=== PATIENT | female | born 2000 | race Caucasian/White ===

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

== ENCOUNTER 2019-09-13 08:44 | Emergency (ER) | payer BC ==
[2019-09-13 08:51] VITALS: RESP 18
--- NOTE | 2019-09-13 09:12 | ED ---
General Adult HPI - General Chief complaint: Abdominal Pain Stated complaint: abd pain/early Time Seen by Provider: 09/13/19 08:52 Source: patient, RN notes reviewed, old records reviewed Mode of arrival: ambulatory Limitations: no limitations - History of Present Illness Initial comments: 19-year-old female patient who believes that she is essentially approximately 6 weeks presents to ED for chief complaint of vaginal cramping. Patient for that her last menstrual period was around 08/08. She states that she has taken 2 positive tests since then. Reports that last Monday she is having some cramping in her lower quadrant mostly on her left side. Has been taking vitamins. Is not yet established with [employer]. Denies any dysuria, vaginal bleeding. Systemic: Pt denies fatigue, fever/chills, rash. Pt denies weakness, night sweats, weight loss. Neuro: Pt denies headache, visual disturbances, syncope or pre-syncope. HEENT: Pt denies ocular discharge or irritation, otalgia, rhinorrhea, pharyngitis or notable lymphadenopathy. Cardiopulmonary: Pt denies chest pain, SOB, heart palpitations, dyspnea on exert ion. Abdominal/GI: Pt denies n/v/d. : Pt denies dysuria, burning w/ urination, frequency/urgency. Denies new onset urinary or bowel incontinence. MSK: Pt denies myalgia, loss of strength or function in extremities. Neuro: Pt denies new onset weakness, paresthesias. - Related Data Home Medications Medication Instructions Recorded Confirmed No Known Home Medications 07/26/15 07/26/15 Allergies Allergy/AdvReac Type Severity Reaction Status Date / Time omeprazole Allergy Rash/Hives Verified 09/13/19 08:48 Review of Systems ROS Statement: Those systems with pertinent positive or pertinent negative responses have been documented in the HPI. ROS Other: All systems not noted in ROS Statement are negative. Past Medical History Past Medical History: No Reported History History of Any Multi-Drug Resistant Organisms: None Reported Past Surgical History: No Surgical Hx Reported Past Psychological History: ADD/ADHD Smoking Status: Never smoker Past Alcohol Use History: None Reported Past Drug Use History: None Reported General Exam - General Exam Comments Initial Comments: Constitutional: NAD, AOX3, Pt has pleasant affect. HEENT: NC/AT, trachea midline, neck supple, no lymphadenopathy. Posterior pharynx non erythematous, without exudates. External ears appear normal, without discharge. Mucous membranes moist. Eyes PERRLA, EOM intact. There is no scleral icterus. No pallor noted. Cardiopulmonary: RRR, no murmurs, rubs or gallops, no JVD noted. Lungs CTAB in anterior and posterior bautista. No peripheral edema. Abdominal exam: Abdomen soft and non-distended. Abdomen mildly tender to palpation left lower quadrant region.. Bowel sounds active in LLQ. No he patosplenomegaly. No ecchymosis Neuro: CN II-XII grossly intact. No nuchal rigidity. No raccon eyes, no turner sign, no hemotympanum. No cervical spinal tenderness. MSK: No posterior calf tenderness bilaterally, homans sign negative bilaterally. Posterior tibialis and radial pulse +2 bilaterally. Sensation intact in upper and lower extremities. Full active ROM in upper and lower extremities, 5/5 stregnth. Limitations: no limitations Course Vital Signs 09/13/19 08:48 Temperature 98.9 F Pulse Rate 85 Respiratory 18 Rate Blood Pressure 112/70 O2 Sat by Pulse 99 Oximetry Medical Decision Making - Medical Decision Making 19-year-old female patient who believes that she is essentially approximately 6 weeks presents to ED for chief complaint of vaginal cramping. Patient for that her last menstrual period was around 08/08. She states that she has taken 2 positive tests since then. Reports that last Monday she is having some cramping in her lower quadrant mostly on her left side. Has been taking vitamins. Is not yet established with [employer]. Denies any dysuria, vaginal bleeding. Patient fell signs stable, afebrile. Physical exam displayed very mild left lower quadrant tenderness. No guarding no rigidity. Laboratory investigations revealed hCG Quant of 3566. UA is negative. Transvaginal ultrasound display a small intrauterine gestational yolk sac, gestation estimated 5 weeks and 1 day. pole is not yet visualized. 2.6 cm likely corpus luteum cyst noted on the right. Patient will be discharged with outpatient OB follow-up and will return to ER if condition worsens. Case discussed with Dr. Ho. - Lab Data Result diagrams: 09/13/19 09:10 09/13/19 09:10 Lab Results 04/24/20 04/24/20 04/24/20 Range/Units 09:10 09:10 09:10 WBC 8.1 (4.0-11.0) k/uL RBC 4.42 (3.80-5.40) m/uL Hgb 13.4 (11.4-16.0) gm/dL Hct 40.9 (34.0-46.0) % MCV 92.6 (80.0-100.0) fL MCH 30.3 (25.0-35.0) pg MCHC 32.7 (31.0-37.0) g/dL RDW 12.0 (11.5-15.5) % Plt Count 275 (150-450) k/uL Neutrophils % 72 % Lymphocytes % 22 % Monocytes % 3 % Eosinophils % 1 % Basophils % 1 % Neutrophils # 5.8 (1.3-7.7) k/uL Lymphocytes # 1.8 (1.0-4.8) k/uL Monocytes # 0.3 (0-1.0) k/uL Eosinophils # 0.1 (0-0.7) k/uL Basophils # 0.1 (0-0.2) k/uL Sodium 137 (137-145) mmol/L Potassium 3.9 (3.5-5.1) mmol/L Chloride 106 (98-107) mmol/L Carbon Dioxide 22 (22-30) mmol/L Anion Gap 9 mmol/L BUN 10 (7-17) mg/dL Creatinine 0.54 (0.52-1.04) mg/dL Est GFR (CKD-EPI)AfAm >90 (>60 ml/min/1.73 sqM) Est GFR (CKD-EPI)NonAf >90 (>60 ml/min/1.73 sqM) Glucose 76 (74-99) mg/dL Calcium 9.3 (8.4-10.2) mg/dL Total Bilirubin 0.9 (0.2-1.3) mg/dL AST 22 (14-36) U/L ALT 13 (4-34) U/L Alkaline Phosphatase 45 (38-126) U/L Total Protein 6.8 (6.3-8.2) g/dL Albumin 4.1 (3.5-5.0) g/dL HCG, Quant 3566.8 mIU/mL Urine Color Yellow Urine Appearance Clear (Clear) Urine pH 7.0 (5.0-8.0) Ur Specific [place] 1.017 (1.001-1.035) Urine Protein Negative (Negative) Urine Glucose (UA) Negative (Negative) Urine Ketones Negative (Negative) Urine Blood Negative (Negative) Urine Nitrite Negative (Negative) Urine Bilirubin Negative (Negative) Urine Urobilinogen <2.0 (<2.0) mg/dL Ur Leukocyte Esterase Negative (Negative) Disposition Clinical Impression: , Abdominal cramping Disposition: HOME SELF-CARE Condition: Stable Instructions (If sedation given, give patient instructions): (ED) Additional Instructions: Follow-up with primary care provider and [facility] [facility] [facility]. Call today after discharge. Return to ER if condition worsens. Continue taking vitamins as directed. Is patient prescribed a controlled substance at d/c from ED?: No Referrals: Desirae Wetzel MD [Primary Care Provider] - 1-2 days Chad Hernandez MD [STAFF PHYSICIAN] - 1-2 days
[2019-09-13 09:30] LABS: Basophils # (A) 0.1 k/uL (0-0.2); Basophils % (A) 1 %; Eosinophils # (A) 0.1 k/uL (0-0.7); Eosinophils % (A) 1 %; HCT 40.9 % (34.0-46.0); HGB 13.4 gm/dL (11.4-16.0); Lymphocytes # (A) 1.8 k/uL (1.0-4.8); Lymphocytes % (A) 22 %; MCH 30.3 pg (25.0-35.0); MCHC 32.7 g/dL (31.0-37.0); MCV 92.6 fL (80.0-100.0); Mean Platelet Volume 7.6; Monocytes # (A) 0.3 k/uL (0-1.0); Monocytes % (A) 3 %; Neutrophils # (A) 5.8 k/uL (1.3-7.7); Neutrophils % (A) 72 %; Platelet Count 275 k/uL (150-450); RBC 4.42 m/uL (3.80-5.40); WBC 8.1 k/uL (4.0-11.0)
[2019-09-13 09:31] LABS: Appearance,Urine Clear (Clear); Bilirubin,Urine Negative (Negative); Blood,Urine Negative (Negative); Color,Urine Yellow; Glucose,Urine (UA) Negative (Negative); Ketones,Urine Negative (Negative); Leukocyte Esterase,Urine Negative (Negative); Nitrite,Urine Negative (Negative); Protein,Urine Negative (Negative); Specific Gravity,Urine 1.017 (1.001-1.035); Urobilinogen,Urine <2.0 mg/dL (<2.0)
[2019-09-13 09:43] LABS: ALT 13 U/L (4-34); AST 22 U/L (14-36); African American GFR (CKD) >90 (>60 ml/min/1.73 sqM); Albumin 4.1 g/dL (3.5-5.0); Alkaline Phosphatase 45 U/L (38-126); Anion Gap 9 mmol/L; Blood Urea Nitrogen 10 mg/dL (7-17); Calcium 9.3 mg/dL (8.4-10.2); Carbon Dioxide 22 mmol/L (22-30); Chloride 106 mmol/L (98-107); Glucose 76 mg/dL (74-99); Non-African American GFR(CKD) >90 (>60 ml/min/1.73 sqM); Potassium 3.9 mmol/L (3.5-5.1); Sodium 137 mmol/L (137-145); Total Bilirubin 0.9 mg/dL (0.2-1.3); Total Protein 6.8 g/dL (6.3-8.2)
[2019-09-13 10:00] LABS: HCG,Quantitative Serum 3566.8 mIU/mL
--- NOTE | 2019-09-13 10:38 | US ---
EXAMINATION TYPE: Ultrasound OB <= 14 weeks transvaginal DATE OF EXAM: 09/13/2019 10:18 AM COMPARISON: NONE CLINICAL HISTORY: 19-year-old female cramping LMP 08/14. Left pelvic pain EXAM PERFORMED: Transvaginal (TV) and Transabdominal (TA) FINDINGS: EXAM MEASUREMENTS: GESTATIONAL AGE / DATING Physician Established: Not yet established Dates by LMP: (5 weeks/0 days) EDC: 05/15/20 Dates by First Scan: No previous this is first scan Dates by Current Scan for: (5 weeks/1 days) EDC: 05/14/20 MATERNAL ANATOMY Uterus: 8.7 x 6.1 x 7.7cm Right Ovary: 3.8 x 2.2 x 2.6cm Left Ovary: 2.8 x 1.4 x 1.8cm Post CDS / Adnexa: small amount of free fluid posterior CDS Presence of free fluid: yes Presence of corpus luteal cyst: yes, right ovary = 2.6 x 2.1 x 2.0cm GESTATION / SURVEY MSD: 0.6cm (5 weeks/1 days) Yolk Sac (normal less than 6mm): 0.2cm No evidence of pole at this time Date of LMP: 08/09/19 Beta HcG (if available): [id number] [employer] notes: Gestational sac with yolk sac identified within uterus, unable to visualize pole at this time, possible too early to detect. Probable corpus luteum right ovary. Small amount of free fluid posterior cul-de-sac IMPRESSION: 1. Small intrauterine gestational sac with yolk sac visualized. MSD places the gestation at 5 weeks 1 day, concordant with gestational age by LMP (5 weeks 0 days). Follow-up ultrasound recommended to en sure the appearance of a pole with cardiac activity to ensure a viable intrauterine . 2. Small amount of cul-de-sac free fluid, likely physiologic. A 2.6 cm corpus luteum on the right.
[2019-09-13 11:31] VITALS: BP 119/79; PULSE 89; TEMP 98.3
== END 2019-09-13 11:31 | disposition home or self-care (01) ==
LOC: EC 08:44
DX: O99.89 Other specified diseases and conditions complicating pregnancy, childbirth and the puerperium (principal); R10.32 Left lower quadrant pain; Z3A.01 Less than 8 weeks gestation of pregnancy; Z88.8 Allergy status to other drugs, medicaments and biological substances
CPT/HCPCS: 36415; 76801; 76817; 80053; 81003; 84702; 85025; 99284

== ENCOUNTER 2019-09-15 10:39 | Emergency (ER) | payer BC ==
[2019-09-15 10:45] VITALS: TEMP 98.1
[2019-09-15 11:49] VITALS: RESP 20
[2019-09-15 11:54] LABS: Basophils # (A) 0.1 k/uL (0-0.2); Basophils % (A) 1 %; Eosinophils # (A) 0.1 k/uL (0-0.7); Eosinophils % (A) 1 %; HCT 41.8 % (34.0-46.0); HGB 13.9 gm/dL (11.4-16.0); Lymphocytes # (A) 1.9 k/uL (1.0-4.8); Lymphocytes % (A) 21 %; MCH 30.5 pg (25.0-35.0); MCHC 33.2 g/dL (31.0-37.0); MCV 91.9 fL (80.0-100.0); Mean Platelet Volume 7.7; Monocytes # (A) 0.4 k/uL (0-1.0); Monocytes % (A) 4 %; Neutrophils # (A) 6.5 k/uL (1.3-7.7); Neutrophils % (A) 71 %; Platelet Count 292 k/uL (150-450); RBC 4.55 m/uL (3.80-5.40); RDW 12.1 % (11.5-15.5); WBC 9.1 k/uL (4.0-11.0)
[2019-09-15 11:59] LABS: Appearance,Urine Cloudy (Clear); Bacteria,Urine Rare /hpf; Bilirubin,Urine Negative (Negative); Blood,Urine Moderate (Negative); Color,Urine Yellow; Glucose,Urine (UA) Negative (Negative); Ketones,Urine Negative (Negative); Leukocyte Esterase,Urine Large (Negative); Mucus,Urine Many /hpf; Nitrite,Urine Negative (Negative); Protein,Urine Trace (Negative); RBC,Urine 7 /hpf (0-5); Specific Gravity,Urine 1.029 (1.001-1.035); Squamous Epithelial Cell,Urine 23 /hpf (0-4); Urobilinogen,Urine <2.0 mg/dL (<2.0); WBC,Urine 20 /hpf (0-5)
[2019-09-15 12:05] LABS: ALT 13 U/L (4-34); AST 29 U/L (14-36); African American GFR (CKD) >90 (>60 ml/min/1.73 sqM); Albumin 4.3 g/dL (3.5-5.0); Alkaline Phosphatase 42 U/L (38-126); Anion Gap 7 mmol/L; Blood Urea Nitrogen 9 mg/dL (7-17); Calcium 9.5 mg/dL (8.4-10.2); Carbon Dioxide 23 mmol/L (22-30); Chloride 106 mmol/L (98-107); Glucose 79 mg/dL (74-99); Non-African American GFR(CKD) >90 (>60 ml/min/1.73 sqM); Potassium 4.3 mmol/L (3.5-5.1); Sodium 136 mmol/L (137-145); Total Bilirubin 1.1 mg/dL (0.2-1.3)
[2019-09-15 12:21] LABS: HCG,Quantitative Serum 8883.5 mIU/mL
[2019-09-15] MEDS ORDERED: Rhogam IMMUNE GLOBULIN 1,500 UNIT/1 ML IM ONE ×2 (12:29→12:33)
[2019-09-15] MEDS ORDERED: CEPHALEXIN 500MG STARTER PACK 4 CAP BTL PO STA (12:38)
[2019-09-15] MEDS ORDERED: CEPHALEXIN 500 MG CAP PO STA (12:38)
--- NOTE | 2019-09-15 14:13 | ED ---
General Adult HPI - General Chief complaint: Vaginal Bleeding Stated complaint: vaginal bleeding Time Seen by Provider: 09/15/19 10:46 Source: patient, RN notes reviewed, old records reviewed Mode of arrival: ambulatory Limitations: no limitations - History of Present Illness Initial comments: 19-year-old female patient proximally 5 weeks gestation presents to ED for evaluation of vaginal bleeding. Patient was initially seen for cramping in the in the emergency department on 09/12. Patient reports that she is still having some mild suprapubic cramping however yesterday and today she began having some very mild bleeding. She denies any dysuria or any concern for STI. Denies any other complaints. Systemic: Pt denies fatigue, fever/chills, rash. Pt denies weakness, night sweats, weight loss. Neuro: Pt denies headache, visual disturbances, syncope or pre-syncope. HEENT: Pt denies ocular discharge or irritation, otalgia, rhinorrhea, pharyngitis or notable lymphadenopathy. Cardiopulmonary: Pt denies chest pain, SOB, heart palpitations, dyspnea on exertion. Abdominal/GI: Pt denies abdominal pain, n/v/d. : Pt denies dysuria, burning w/ urination, frequency/urgency. Denies new onset urinary or bowel incontinence. MSK: Pt denies myalgia, loss of strength or function in extremities. Neuro: Pt denies new onset weakness, paresthesias. - Related Data Previous Rx's Medication Instructions Recorded Cephalexin [Keflex] 500 mg PO Q12HR 5 Days #10 cap 09/15/19 Allergies Allergy/AdvReac Type Severity Reaction Status Date / Time omeprazole Allergy Rash/Hives Verified 09/15/19 10:42 Review of Systems ROS Statement: Those systems with pertinent positive or pertinent negative responses have been documented in the HPI. ROS Other: All systems not noted in ROS Statement are negative. Past Medical History Past Medical History: No Reported History History of Any Multi-Drug Resistant Organisms: None Reported Past Surgical History: No Surgical Hx Reported Past Psychological History: ADD/ADHD Smoking Status: Never smoker Past Alcohol Use History: None Reported Past Drug Use History: None Reported General Exam - General Exam Comments Initial Comments: Constitutional: NAD, AOX3, Pt has pleasant affect. HEENT: NC/AT, trachea midline, neck supple, no lymphadenopathy. Posterior pharynx non erythematous, without exudates. External ears appear normal, without discharge. Mucous membranes moist. Eyes PERRLA, EOM intact. There is no scleral icterus. No pallor noted. Cardiopulmonary: RRR, no murmurs, rubs or gallops, no JVD noted. Lungs CTAB in anterior and posterior bautista. No peripheral edema. Abdominal exam: Abdomen soft and non-distended. Abdomen non-tender to palpation in all 4 quadrants. Bowel sounds active in LLQ. No hepatosplenomegaly. No ecchymosis Neuro: CN II-XII grossly intact. No nuchal rigidity. No raccon eyes, no turner sign, no hemotympanum. No cervical spinal tenderness. MSK: No posterior calf tenderness bilaterally, homans sign negative bilaterally. Posterior tibialis and radial pulse +2 bilaterally. Sensation intact in upper and lower extremities. Full active ROM in upper and lower extremities, 5/5 stregnth. Pelvic: Pelvic exam performed. Cervical os is closed. No lesions, mucova pink. No purulent drainage noted. Chaperogned by OLINDA Abdalal Limitations: no limitations Course Vital Signs 09/15/19 09/15/19 09/15/19 10:42 10:45 11:45 Temperature 98.1 F Pulse Rate 102 H Respiratory 18 20 20 Rate Blood Pressure 98/57 O2 Sat by Pulse 99 Oximetry 09/15/19 12:45 Temperature Pulse Rate 78 Respiratory 20 Rate Blood Pressure 110/59 O2 Sat by Pulse 99 Oximetry Medical Decision Making - Medical Decision Making 19-year-old female patient proximally 5 weeks gestation presents to ED for evaluation of vaginal bleeding. Patient was initially seen for cramping in the in the emergency department on 09/12. Patient reports that she is still having some mild suprapubic cramping however yesterday and today she began having some very mild bleeding. She denies any dysuria or any concern for STI. Denies any other complaints. Patient vital signs are stable, afebrile. Physical exam displayed: Abdomen soft and non-distended. Abdomen non-tender to palpation in all 4 quadrants. Previous ultrasound displayed small effusion on gestation with yolk sac estimated 5 weeks 1 day. HCG Quant sivan from 3000 508,800. UA was contaminated with squamous epithelial cells are did display 20 white cells and bacteria. Patient was offered and did wish to have a pelvic exam performed, chaperogned by Rufina. This displayed closed cervix no blood was noted. Patient discharged in stable condition. Patient is in no pain at time of disc harge. He'll follow up with primary care provider as well as [facility]ELOPMENT [facility]. Patient will have repeat beta hCG performed in 48 hours to ensure appropriate increase. Keflex for asyptomatic bacturia. Will return to ED if condition worsens. Case discussed with Dr. Donaldson. - Lab Data Result diagrams: 09/15/19 11:50 09/15/19 11:50 Lab Results 09/15/19 09/15/19 09/15/19 Range/Units 11:30 11:50 11:50 WBC 9.1 (4.0-11.0) k/uL RBC 4.55 (3.80-5.40) m/uL Hgb 13.9 (11.4-16.0) gm/dL Hct 41.8 (34.0-46.0) % MCV 91.9 (80.0-100.0) fL MCH 30.5 (25.0-35.0) pg MCHC 33.2 (31.0-37.0) g/dL RDW 12.1 (11.5-15.5) % Plt Count 292 (150-450) k/uL Neutrophils % 71 % Lymphocytes % 21 % Monocytes % 4 % Eosinophils % 1 % Basophils % 1 % Neutrophils # 6.5 (1.3-7.7) k/uL Lymphocytes # 1.9 (1.0-4.8) k/uL Monocytes # 0.4 (0-1.0) k/uL Eosinophils # 0.1 (0-0.7) k/uL Basophils # 0.1 (0-0.2) k/uL Sodium (137-145) mmol/L Potassium (3.5-5.1) mmol/L Chloride (98-107) mmol/L Carbon Dioxide (22-30) mmol/L Anion Gap mmol/L BUN (7-17) mg/dL Creatinine (0.52-1.04) mg/dL Est GFR (CKD-EPI)AfAm (>60 ml/min/1.73 sqM) Est GFR (CKD-EPI)NonAf (>60 ml/min/1.73 sqM) Glucose (74-99) mg/dL Calcium (8.4-10.2) mg/dL Total Bilirubin (0.2-1.3) mg/dL AST (14-36) U/L ALT (4-34) U/L Alkaline Phosphatase (38-126) U/L Total Protein (6.3-8.2) g/dL Albumin (3.5-5.0) g/dL HCG, Quant mIU/mL Urine Color Urine Appearance (Clear) Urine pH (5.0-8.0) Ur Specific [place] (1.001-1.035) Urine Protein (Negative) Urine Glucose (UA) (Negative) Urine Ketones (Negative) Urine Blood (Negative) Urine Nitrite (Negative) Urine Bilirubin (Negative) Urine Urobilinogen (<2.0) mg/dL Ur Leukocyte Esterase (Negative) Urine RBC (0-5) /hpf Urine WBC (0-5) /hpf Ur Squamous Epith Cells (0-4) /hpf Urine Bacteria (None) /hpf Urine Mucus (None) /hpf Urine HCG, Qual Detected (Not Detectd) Blood Type O Negative Blood Type Recheck No Previous Record Bld Type Recheck Status Antibody Screen NEGATIVE 09/15/19 09/15/19 Range/Units 11:50 11:50 WBC (4.0-11.0) k/uL RBC (3.80-5.40) m/uL Hgb (11.4-16.0) gm/dL Hct (34.0-46.0) % MCV (80.0-100.0) fL MCH (25.0-35.0) pg MCHC (31.0-37.0) g/dL RDW (11.5-15.5) % Plt Count (150-450) k/uL Neutrophils % % Lymphocytes % % Monocytes % % Eosinophils % % Basophils % % Neutrophils # (1.3-7.7) k/uL Lymphocytes # (1.0-4.8) k/uL Monocytes # (0-1.0) k/uL Eosinophils # (0-0.7) k/uL Basophils # (0-0.2) k/uL Sodium 136 L (137-145) mmol/L Potassium 4.3 (3.5-5.1) mmol/L Chloride 106 (98-107) mmol/L Carbon Dioxide 23 (22-30) mmol/L Anion Gap 7 mmol/L BUN 9 (7-17) mg/dL Creatinine 0.53 (0.52-1.04) mg/dL Est GFR (CKD-EPI)AfAm >90 (>60 ml/min/1.73 sqM) Est GFR (CKD-EPI)NonAf >90 (>60 ml/min/1.73 sqM) Glucose 79 (74-99) mg/dL Calcium 9.5 (8.4-10.2) mg/dL Total Bilirubin 1.1 (0.2-1.3) mg/dL AST 29 (14-36) U/L ALT 13 (4-34) U/L Alkaline Phosphatase 42 (38-126) U/L Total Protein 7.0 (6.3-8.2) g/dL Albumin 4.3 (3.5-5.0) g/dL HCG, Quant 8883.5 mIU/mL Urine Color Yellow Urine Appearance Cloudy H (Clear) Urine pH 6.0 (5.0-8.0) Ur Specific [place] 1.029 (1.001-1.035) Urine Protein Trace H (Negative) Urine Glucose (UA) Negative (Negative) Urine Ketones Negative (Negative) Urine Blood Moderate H (Negative) Urine Nitrite Negative (Negative) Urine Bilirubin Negative (Negative) Urine Urobilinogen <2.0 (<2.0) mg/dL Ur Leukocyte Esterase Large H (Negative) Urine RBC 7 H (0-5) /hpf Urine WBC 20 H (0-5) /hpf Ur Squamous Epith Cells 23 H (0-4) /hpf Urine Bacteria Rare H (None) /hpf Urine Mucus Many H (None) /hpf Urine HCG, Qual (Not Detectd) Blood Type Blood Type Recheck Bld Type Recheck Status Antibody Screen Disposition Clinical Impression: Asymptomatic bacteriuria, Vaginal bleeding affecting early Disposition: HOME SELF-CARE Condition: Stable Instructions (If sedation given, give patient instructions): Threatened Mis carriage (ED) Additional Instructions: Call [facility]ELOPMENT TE[facility] after discharge for close outpatient follow-up. Follow-up with primary care provider tomorrow. Take Keflex as directed. Have repeat blood draw in 48 hours to ensure appropriate rise in hCG. Return to ER if condition worsens. Is patient prescribed a controlled substance at d/c from ED?: No Referrals: Desirae Wetzel MD [Primary Care Provider] - 1-2 days Siri Kohler MD [STAFF PHYSICIAN] - 1-2 days
[2019-09-15 14:18] VITALS: BP 117/61; PULSE 71
== END 2019-09-15 14:22 | disposition home or self-care (01) ==
LOC: EC 10:39
DX: O20.9 Hemorrhage in early pregnancy, unspecified (principal); O99.89 Other specified diseases and conditions complicating pregnancy, childbirth and the puerperium; R82.71 Bacteriuria; Z3A.01 Less than 8 weeks gestation of pregnancy; Z88.8 Allergy status to other drugs, medicaments and biological substances
CPT/HCPCS: 36415; 86900; 86901; 80053; 85025; 86850; 81001; 81025; 84702; 87808; 87491; 87591; 87070; 99284; 96372; J2791

== ENCOUNTER 2020-12-14 21:19 | Emergency (ER) | payer OTHER, BC ==
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
--- NOTE | 2020-12-14 22:33 | XR ---
EXAMINATION TYPE: XR pelvis AP view DATE OF EXAM: 12/14/2020 COMPARISON: NONE HISTORY: Pain TECHNIQUE: Single view FINDINGS: Pelvic ring appears intact. Proximal femurs and hip joints appear intact. Sacroiliac joints appear normal. IMPRESSION: Normal pelvis
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
[2020-12-14 23:24] VITALS: BP 119/81; PULSE 72; RESP 18; TEMP 97.6
== END 2020-12-14 23:20 | disposition home or self-care (01) ==
LOC: EC 21:19
DX: S13.9XXA Sprain of joints and ligaments of unspecified parts of neck, initial encounter (principal); Z88.8 Allergy status to other drugs, medicaments and biological substances; V43.52XA Car driver injured in collision with other type car in traffic accident, initial encounter; Y92.410 Unspecified street and highway as the place of occurrence of the external cause
CPT/HCPCS: 70450; 71045; 72125; 72170; 99284

== ENCOUNTER 2021-01-08 12:41 | Emergency (ER) | payer BC ==
[2021-01-08 12:48] VITALS: TEMP 99.1
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
--- NOTE | 2021-01-08 14:09 | XR ---
EXAMINATION TYPE: XR elbow complete LT DATE OF EXAM: 01/08/2021 COMPARISON: NONE HISTORY: Pain FINDINGS: Three views of the elbow demonstrate no pathologic joint effusion. The osseous structures are intact . There is no acute fracture or dislocation. IMPRESSION: 1. No acute fracture or dislocation. If symptoms persist follow-up study in 7 to 10 days could be ob tained.
--- NOTE | 2021-01-08 14:10 | XR ---
EXAMINATION TYPE: XR hand complete RT DATE OF EXAM: 01/08/2021 COMPARISON: NONE HISTORY: Pain TECHNIQUE: Three views are submitted. FINDINGS: The osseous structures are intact. The joint spaces are preserved and there is no acute fracture or dislocation. IMPRESSION: 1. No definite acute fracture or dislocation if symptoms persist, follow-up study in 7 to 10 days wo uld be suggested
--- NOTE | 2021-01-08 14:12 | XR ---
EXAMINATION TYPE: XR wrist complete RT DATE OF EXAM: 01/08/2021 COMPARISON: NONE HISTORY: Pain TECHNIQUE: Four views submitted. FINDINGS: The osseous structures are intact. The joint spaces are preserved and there is no acute fracture or dislocation. IMPRESSION: 1. No definite acute fracture or dislocation if symptoms persist, follow-up study in 7 to 10 days wo uld be suggested
--- NOTE | 2021-01-08 14:12 | XR ---
EXAMINATION TYPE: XR shoulder complete RT DATE OF EXAM: 01/08/2021 COMPARISON: NONE HISTORY: Pain TECHNIQUE: Three views are submitted. FINDINGS: The osseous structures are intact. There is no acute fracture or dislocation. The AC joint is maint ained. Slight elevation of the clavicle. IMPRESSION: 1. No acute fracture. AC joint distance is maintained. There is slight elevation of clavicle which c ould be congenital. If concern for AC joint separation correlate with MRI.
[2021-01-08 14:47] VITALS: BP 124/66; PULSE 78; RESP 18
== END 2021-01-08 14:47 | disposition home or self-care (01) ==
LOC: EC 12:41
DX: S43.51XA Sprain of right acromioclavicular joint, initial encounter (principal); S63.501A Unspecified sprain of right wrist, initial encounter; Z87.891 Personal history of nicotine dependence; V89.2XXA Person injured in unspecified motor-vehicle accident, traffic, initial encounter; Y92.410 Unspecified street and highway as the place of occurrence of the external cause
CPT/HCPCS: 99284

== ENCOUNTER 2021-01-10 05:23 | Emergency (ER) | payer BC ==
[2021-01-10 05:30] VITALS: RESP 16
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
[2021-01-10] MEDS ORDERED: ACETAMINOPHEN TAB 500 MG TAB PO STA (05:48)
[2021-01-10] MEDS ORDERED: IBUPROFEN 600 MG STARTER PACK 4 TAB BTL PO STA (05:48)
[2021-01-10] MEDS ORDERED: SULFAMETHOX-TMP 800-160MG 1 EACH TAB PO STA (05:48)
[2021-01-10] MEDS ORDERED: PHENAZOPYRIDINE 200 MG TAB PO STA (05:48)
[2021-01-10] MEDS ORDERED: SULFAMETH-TMP DS STARTER PACK 2 TAB BTL PO STA (05:48)
[2021-01-10] MEDS ORDERED: cefTRIAXone 250 MG VIAL IM STA (05:48)
[2021-01-10] MEDS ORDERED: IBUPROFEN 600 MG TAB PO STA (05:48)
[2021-01-10 06:36] LABS: Bacteria,Urine Occasional /hpf; Mucus,Urine Occasional /hpf
[2021-01-10 06:38] LABS: Appearance,Urine Cloudy (Clear); Color,Urine Brown
[2021-01-10 06:39] LABS: RBC,Urine >182 /hpf (0-5); WBC,Urine >182 /hpf (0-5)
[2021-01-10] MEDS ORDERED: SODIUM CHLORIDE 0.9% 1,000 ML IV STA (06:58)
[2021-01-10 07:19] LABS: Basophils # (A) 0.1 k/uL (0-0.2); Basophils % (A) 1 %; Eosinophils # (A) 0.3 k/uL (0-0.7); Eosinophils % (A) 3 %; HCT 37.9 % (34.0-46.0); Lymphocytes # (A) 1.8 k/uL (1.0-4.8); Lymphocytes % (A) 15 %; MCH 32.1 pg (25.0-35.0); MCHC 34.5 g/dL (31.0-37.0); MCV 93.3 fL (80.0-100.0); Mean Platelet Volume 8.2; Monocytes # (A) 0.5 k/uL (0-1.0); Monocytes % (A) 4 %; Neutrophils % (A) 76 %; Platelet Count 264 k/uL (150-450); RBC 4.06 m/uL (3.80-5.40); RDW 12.9 % (11.5-15.5); WBC 11.8 k/uL (3.8-10.6)
[2021-01-10 07:30] LABS: ALT 9 U/L (4-34); AST 20 U/L (14-36); African American GFR (CKD) >90 (>60 ml/min/1.73 sqM); Albumin 3.8 g/dL (3.5-5.0); Alkaline Phosphatase 48 U/L (38-126); Amylase 62 U/L (30-110); Anion Gap 8 mmol/L; Blood Urea Nitrogen 9 mg/dL (7-17); Calcium 9.5 mg/dL (8.4-10.2); Carbon Dioxide 23 mmol/L (22-30); Chloride 106 mmol/L (98-107); Glucose 86 mg/dL (74-99); Lipase 66 U/L (23-300); Non-African American GFR(CKD) >90 (>60 ml/min/1.73 sqM); Potassium 3.8 mmol/L (3.5-5.1); Sodium 137 mmol/L (137-145); Total Bilirubin 0.6 mg/dL (0.2-1.3); Total Protein 6.2 g/dL (6.3-8.2)
[2021-01-10] MEDS ORDERED: cefTRIAXone IN SWFI 1,000 MG/10 ML SYRINGE IVP STA (07:30)
--- NOTE | 2021-01-10 08:11 | CT ---
EXAMINATION TYPE: CT abdomen pelvis w con DATE OF EXAM: 01/10/2021 COMPARISON: None HISTORY: Abdominal pain CT DLP: 769.7 mGycm Automated exposure control for dose reduction was used. TECHNIQUE: Helical acquisition of images was performed from the lung bases through the pelvis. CONTRAST: Performed without Oral Contrast and with IV Contrast, patient injected with 100 ml mL of Isovue 300. FINDINGS: The lung bases are clear. The gallbladder is normal and there is no pericholecystic fluid, gallbladder distention, gallbladder wall thickening or gallstones. There is no biliary ductal dilatation. There is no focal mass or organomegaly involving the liver pancreas, spleen or adrenal glands. The kidneys excrete contrast probably symmetrically and there is no solid renal mass or hydronephrosi s. There is no retroperitoneal adenopathy or hemorrhage in the caliber of the abdominal aorta is norm al. The bowel loops are normal in caliber. There is no bowel wall thickening. There are no inflammatory c hanges in the mesentery. There is no free intraperitoneal air or fluid. There is a 7 cm fluid density mass in the midline pelvis extending to the left of midline most likely representing a large ovarian cyst. There is no pelvic adenopathy or free fluid. The visualized osseous structures are intact. IMPRESSION: 7 cm cyst within the pelvis as described above consistent with a ovarian cyst. Short-term follow-up w ith pelvic ultrasound is recommended.
[2021-01-10 10:09] VITALS: BP 128/70; PULSE 78; TEMP 98
== END 2021-01-10 10:08 | disposition home or self-care (01) ==
LOC: EC 05:23
DX: N39.0 Urinary tract infection, site not specified (principal); Z87.891 Personal history of nicotine dependence; Z88.8 Allergy status to other drugs, medicaments and biological substances
CPT/HCPCS: 36415; 80053; 82150; 83690; 85025; 81001; 81025; 87491; 87591; 87086; 74177; 99284; 96374; 96361; J0696; Q9967

== ENCOUNTER → 2024-09-18 | Outpatient (CLI) | payer OTHER ==
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
== END | disposition home or self-care (01) ==
LOC: RADXRMAIN 11:21
PROVIDERS: ATTEND Emergency Medicine
DX: S23.3XXA Sprain of ligaments of thoracic spine, initial encounter (principal); X58.XXXA Exposure to other specified factors, initial encounter
CPT/HCPCS: 72072